=== PATIENT | male | born 1995 | race Caucasian/White ===

== ENCOUNTER 2020-01-09 14:00 | Emergency (ER) | payer BC ==
[~2020-01-09] VITALS: Ht 188 cm; Wt 90.3 kg
[2020-01-09 14:05] VITALS: Ht 188 cm; Wt 90.3 kg
[2020-01-09 15:58] VITALS: BP 136/87
== END 2020-01-09 15:58 | disposition home or self-care (01) ==
LOC: ED 14:00
DX: S46.912A Strain of unspecified muscle, fascia and tendon at shoulder and upper arm level, left arm, initial encounter (principal); X50.0XXA Overexertion from strenuous movement or load, initial encounter; Y93.89 Activity, other specified; Y92.89 Other specified places as the place of occurrence of the external cause; Y99.8 Other external cause status